=== PATIENT | male | born 1975 | race Caucasian/White ===

== ENCOUNTER 2020-10-25 05:39 | Day surgery (SDC) | payer OTHER ==
[2020-10-18 17:15] LABS: BASOPHILS # (AUTO) 0.1 X10'3 (0-0.2); BASOPHILS % (AUTO) 0.8 % (0-1); EOSINOPHILS # (AUTO) 0.3 X10'3 (0-0.9); EOSINOPHILS % (AUTO) 3.3 % (0-6); LYMPHOCYTES # (AUTO) 1.9 X10'3 (1.1-4.8); LYMPHOCYTES % (AUTO) 20.5 % (21-51); MEAN CORPUSCULAR HEMOGLOBIN 31.4 PG (27.0-31.0); MEAN CORPUSCULAR HGB CONC 34.7 g/dL (33.0-36.5); MEAN CORPUSCULAR VOLUME 90.6 FL (78-98); MEAN PLATELET VOLUME 7.6 FL (7.4-10.4); MONOCYTES # (AUTO) 0.6 X10'3 (0-0.9); MONOCYTES % (AUTO) 6.6 % (2-12); NEUTROPHILS # (AUTO) 6.4 X10'3 (1.8-7.7); NEUTROPHILS % (AUTO) 68.8 % (42-75); PRE OP HEMATOCRIT 48.6 % (42.0-52.0); PRE OP HEMOGLOBIN 16.9 g/dL (14.0-17.9); PRE OP PLATELET COUNT 301 X10'3 (140-440); RED BLOOD COUNT 5.37 X10'6 (4.70-6.10); RED CELL DISTRIBUTION WIDTH 12.3 % (11.5-14.5)
[2020-10-18 17:30] LABS: PRE OP PROTIME 10.8 SECONDS (9.0-12.0)
[2020-10-18 17:36] LABS: ALBUMIN 4.3 G/DL (3.4-5.0); ALBUMIN/GLOBULIN RATIO 1.2 (1.1-1.5); ALKALINE PHOSPHATASE 78 IU/L (46-116); BLOOD UREA NITROGEN 18 MG/DL (7-18); BUN/CREATININE RATIO 19.8 (5.4-32.0); CALCIUM 8.8 MG/DL (8.5-10.1); CHLORIDE 104 MMOL/L (99-107); CREATININE 0.91 MG/DL (0.60-1.10); PRE OP ALT 63 U/L (30-65); PRE OP ANION GAP 11 (8-16); PRE OP AST 19 U/L (10-37); PRE OP BILIRUB, TOTAL 0.8 MG/DL (0.0-1.0); PRE OP GLUCOSE 97 MG/DL (70-104); PRE OP POTASSIUM 4.2 MMOL/L (3.4-5.1); PRE OP SODIUM 140 MMOL/L (135-145); TOTAL CARBON DIOXIDE 25.4 MMOL/L (24-32); eGFR > 90 ML/MIN
[~2020-10-25] VITALS: Ht 182.9 cm; Wt 92.0 kg
[2020-10-25] VITALS (36 sets, daily range): BP systolic 111–151; BP diastolic 74–98
[~2020-10-25 05:39] MED LIST: BENA20TA82 PO; clindamycin-Cleocin 900mg/D5W 50 ML IV ONE; famotidine 20mg tablet PO ONE; vancomycin 1,500 MG in NS 300ml IV soln IV ONE
[2020-10-25] MEDS: ringers solution, lacted 1,000 ML IV SCH ×2 (06:13→14:44)
[2020-10-25] MEDS ORDERED: BUPIVAcaine/PF 2.5 mg/ml (0.25%) 30ml vial ONE (06:40)
[2020-10-25] MEDS ORDERED: sevoflurane 250ml liquid IH ONE (07:21)
[2020-10-25] MEDS ORDERED: midazolam 1 mg/ML 2ml injection ONE (07:23)
[2020-10-25] MEDS ORDERED: propofol inj 20 ML IV ONE (07:23)
[2020-10-25] MEDS ORDERED: fentaNYL/PF 50MCG/1 ML 2ML syringe ONE ×2 (07:23→07:45)
[2020-10-25] MEDS ORDERED: dexamethasone sod phosphate 4mg/ml inj. ONE (07:38)
[2020-10-25] MEDS ORDERED: ringers solution, lacted 1,000 ML IV SCH (07:45)
[2020-10-25] MEDS ORDERED: ondansetron/PF 4mg/2ml inj IV PRN ×2 (07:45→09:40)
[2020-10-25] MEDS ORDERED: morphine 2 MG/ML inj. syringe IV PRN (07:45)
[2020-10-25] MEDS ORDERED: meperidine/PF 25mg/ml syringe IV PRN ×2 (07:45)
[2020-10-25] MEDS ORDERED: proCHLORperazine 10 MG/2 ml inj IV PRN (07:45)
[2020-10-25] MEDS ORDERED: acetaminophen 1,000mg/100ml IV 100 ML IV ONE (08:40)
[2020-10-25] MEDS ORDERED: ondansetron/PF 4mg/2ml inj ONE (08:42)
--- NOTE | 2020-10-25 09:09 | NUR ---
Received from OR via [facility] , accompanied by Anesthesiologist KANDY and report given by Anesthesiolgist. PATIENT WITH SPLINT TO LLE. TOES PWD WITH + CAP REFILL. PATIENT WITH VSS AT THIS TIME. 20G PIV IN RIGHT UE RUNNING LR AT 100. FOOT OF [facility]ALBERTO ONTIVEROS. Addendum: 10/25/20 at 0920 by Jose Vargas RN, RN Amended: Links added.
[2020-10-25] MEDS: morphine 4 MG/ML inj SYRINge IV PRN ×2 (09:36→14:44)
[2020-10-25] MEDS ORDERED: acetaminophen 325mg tablet PO PRN (09:40)
[2020-10-25] MEDS ORDERED: diphenhydrAMINE 25mg capsule PO PRN ×2 (09:40)
[2020-10-25] MEDS ORDERED: HYDROmorphone 1 mg/ml syringe IV PRN (09:40)
[2020-10-25] MEDS: potassium Cl 20mEq in NS 1,000 ML IV SCH ×2 (09:40→15:11)
[2020-10-25] MEDS ORDERED: bisacodyl 10mg suppository rectal RC PRN (09:40)
[2020-10-25] MEDS ORDERED: HYDROcodone/acetaminophen 10/325mg tab PO PRN (09:40)
[2020-10-25] MEDS ORDERED: magnesium hydroxide 30ml (MOM) UD suspension PO PRN (09:40)
[2020-10-25] MEDS: meperidine/PF 25mg/ml syringe IV PRN ×2 (09:52→14:43)
[2020-10-25] MEDS ORDERED: ketorolac trometh. 30mg/ml inj. IV ONE (09:55)
--- NOTE | 2020-10-25 12:59 | NUR ---
PATIENT HAS MET ALL CRITERIA FOR TRANSFER TO THE SURGICAL/ARI/PCU/ORTHO/ICU FLOOR. VSS. DRESSINGS INTACT. BED LOW, CALL LIGHT PRESENT AND 2 RAILS UP. RN PRESENT TO ACCEPT CARE OF PATIENT AND REPORT HAS BEEN CALLED. ALL QUESTIONS ANSWERED TO ACCEPTING PEARL VERA. DRESSING STILL CDI AND FOOT OF BED GATCHED. Addendum: 10/25/20 at 1308 by Jose Russell - PEARL KANG Amended: Links added.
--- NOTE | 2020-10-25 13:00 | NUR ---
Pt transferred from ER to rm 4017 via gurney to bed. Pt awake and alert. Pt reported tolerable pain to L foot at this time. L Foot elevated on pillows and foot of bed gatched. Splint dressing to L foot CDI.
--- NOTE | 2020-10-25 14:45 | NUR ---
Report given to Oxana Lewis RN who will resume care of pt.
[2020-10-25] MEDS: CLINDAMYCIN/D5W 900mg/50ml 50 ML IV SCH (16:30)
--- NOTE | 2020-10-25 18:39 | NUR ---
Problems reprioritized. Patient report given, questions answered & plan of care reviewed with Sujey KANG.
[2020-10-25] MEDS ORDERED: aspirin 325mg tablet PO SCH (20:00)
[2020-10-25] MEDS ORDERED: vancomycin/NS 1 GM ADD-VANTAGE 250 ML IV SCH (20:00)
[2020-10-25] MEDS ORDERED: sennosides 8.6mg tablet PO SCH (21:00)
[2020-10-25] MEDS: HYDROcodone/acetaminophen 10/325mg tab PO PRN (23:36)
[2020-10-26] VITALS: BP 122/75
[2020-10-26] MEDS: CLINDAMYCIN/D5W 900mg/50ml 50 ML IV SCH ×2 (00:55→07:35)
[2020-10-26 02:00] VITALS: BP 122/75
[2020-10-26 06:00] VITALS: BP 122/74
--- NOTE | 2020-10-26 06:30 | NUR ---
Patient in room ORTHO 4017. I have received report from Sujey KANG and had the opportunity to ask questions and assume patient care.
--- NOTE | 2020-10-26 06:48 | NUR ---
Patient in room ORTHO 4017. I have received report from Sujey KANG and had the opportunity to ask questions and assume patient care.
[2020-10-26] MEDS: HYDROcodone/acetaminophen 10/325mg tab PO PRN (07:36)
[2020-10-26] MEDS ORDERED: aspirin 81mg tablet.DR PO SCH ×2 (07:38→08:23)
[2020-10-26] MEDS ORDERED: lisinopril 20mg tablet PO SCH (08:00)
[2020-10-26] MEDS: potassium Cl 20mEq in NS 1,000 ML IV SCH (08:41)
[2020-10-26 10:00] VITALS: BP 125/74
[2020-10-26] MEDS ORDERED: SENN-173 PO (10:17)
[2020-10-26] MEDS ORDERED: oxyCODONE IR 5mg (immed. release) tablet PO ONE (11:15)
[2020-10-26 14:00] VITALS: BP 123/76
[2020-10-26] MEDS ORDERED: ASPI-1264 PO (15:46)
--- NOTE | 2020-10-26 15:54 | NUR ---
All discharge was gone over with the pt. Pt took all their belongings and family wanted to take pt down to lobby. Pt left in their own rental wheel chair.
== END 2020-10-26 15:56 | disposition home or self-care (01) ==
LOC: PAS 05:39 → ORTHO 4S 09:36 → PAS 10-26 15:56
PROVIDERS: ATTEND Orthopaedic Surgery
DX: M76.822 Posterior tibial tendinitis, left leg (principal); M89.8X7 Other specified disorders of bone, ankle and foot; I10 Essential (primary) hypertension; J45.909 Unspecified asthma, uncomplicated; Z88.1 Allergy status to other antibiotic agents; Z72.89 Other problems related to lifestyle; Z79.899 Other long term (current) drug therapy; Z98.818 Other dental procedure status; Z79.01 Long term (current) use of anticoagulants
CPT/HCPCS: 28238; 36415; 80053; 82948; 85025; 85610; 85730; 93005; 97161; 97530; A6223; C1713; J0131; J1100; J1170; J1885; J2175; J2250; J2270; J2405; J2704; J3010; J3370; J3480; J3490; J7040; A4215; A4618; A6449; A7000; G0378; J7120